=== PATIENT | female | born 1980 | race Caucasian/White ===

== ENCOUNTER 2018-10-17 19:59 | Emergency (ER) | payer MEDICAID, SELFPAY ==
[~2018-10-17 19:59] MED LIST: Sodium Chloride Irrig Solution 250 ML BOT ONE
[2018-10-17] MEDS ORDERED: Bacitracin Zinc 1 Packet ONE (20:47)
[2018-10-17] MEDS ORDERED: HYDROcodone/Acetaminophen 10/325 mg Tablet ONE (20:47)
== END 2018-10-17 21:23 | disposition home or self-care (01) ==
LOC: MADERS 19:59
DX: T20.27XA Burn of second degree of neck, initial encounter (principal); T20.26XA Burn of second degree of forehead and cheek, initial encounter; T21.21XA Burn of second degree of chest wall, initial encounter; T22.20XA Burn of second degree of shoulder and upper limb, except wrist and hand, unspecified site, initial encounter; T31.0 Burns involving less than 10% of body surface; X12.XXXA Contact with other hot fluids, initial encounter
CPT/HCPCS: 16020

== ENCOUNTER 2019-03-01 12:41 | Emergency (ER) | payer SELFPAY | END 2019-03-01 13:20 | disposition home or self-care (01) | LOC: MADERS 12:41 | DX: T63.461A Toxic effect of venom of wasps, accidental (unintentional), initial encounter (principal); F41.9 Anxiety disorder, unspecified; F32.9 Major depressive disorder, single episode, unspecified; F17.210 Nicotine dependence, cigarettes, uncomplicated | CPT/HCPCS: 99282 ==

== ENCOUNTER 2020-11-19 03:26 | Emergency (ER) | payer SELFPAY ==
[2020-11-19 04:04] LABS: #Basophils 0.2 thou/uL (0.0-0.2); #Eosinphils 0.1 thou/uL (0.0-0.7); #Lymphocytes 3.9 thou/uL (1.20-3.40); #Monocytes 0.6 thou/uL (0.11-0.59); #Neutrophils 5.7 thou/uL (1.40-6.50); %Basophils 1.5 % (0.0-1.0); %Eosinophils 1.2 % (0.0-10.0); %Lymphocytes 36.9 % (21.0-51.0); %Monocytes 6.1 % (0.0-10.0); %Neutrophils 54.3 % (42.0-75.0); Mean Corpuscular HGB CONC 33.7 g/dL (32.0-36.0); Mean Corpuscular Hemoglobin 32.6 pg (27.0-31.0); Mean Corpuscular Volume 96.7 fL (78.0-98.0); Mean Platelet Volume 9.5 fL (7.4-10.4); Platelet Count 256 thou/uL (130-400); RBC Distribution Width 13.1 % (11.5-14.5); Red Blood Cell (RBC) Count 4.31 mill/uL (4.20-5.40); White Blood Cell (WBC) Count 10.5 thou/uL (4.8-10.8)
[2020-11-19] MEDS ORDERED: Lorazepam 2 MG/ML VIAL ONE (04:04)
[2020-11-19 04:13] LABS: ALT (SGPT) 20 U/L (8-55); AST (SGOT) 30 U/L (5-34); Acetaminophen Less than 6.0 mcg/mL (10.0-30.0); Albumin 4.6 g/dL (3.5-5.0); Alcohol 300 mg/dL (Less than 10); Alkaline Phosphatase 60 U/L (40-110); Anion Gap 17 mmol/L (10-20); BUN (Urea Nitrogen) 5 mg/dL (7.0-18.7); Bilirubin, Total 0.4 mg/dL (0.2-1.2); Calc. Creatinine Clearance 0 mL/min (70-130); Calcium 8.8 mg/dL (7.8-10.44); Carbon Dioxide 24 mmol/L (22-29); Chloride 102 mmol/L (98-107); Globulin 3.6 g/dL (2.4-3.5); Glucose 93 mg/dL (70-105); Potassium 3.9 mmol/L (3.5-5.1); Protein, Total 8.2 g/dL (6.0-8.3); Salicylate Less than 8.0 mg/dL (15.0-30.0); Sodium 139 mmol/L (136-145)
[2020-11-19 04:34] LABS: Bilirubin Negative (Negative); Blood, Urine Trace (Negative); Clarity Clear (Clear); Glucose, Urine (Dipstick) Negative (Negative); Ketone, Urine Negative (Negative); Leukocyte Negative (Negative); Nitrite Negative (Negative); Protein, Urine (Dipstick) Negative (Neg-Trace); Specific Gravity, Urine Less/Equal 1.005 (1.005-1.030); Urobilinogen 0.2 mg/dL (Less than 2); pH, Urine 6.5 (5.0-9.0)
[2020-11-19 04:35] LABS: Amphetamine Not Detected (NotDetected); Benzodiazepine Screen Not Detected (NotDetected); Cocaine Metabolite Screen Not Detected (NotDetected); Methadone Not Detected (NotDetected); Methamphetamine Not Detected (NotDetected); Opiate Screen Not Detected (NotDetected); Phencyclidine (PCP) Not Detected (NotDetected); RBC/HPF None Seen HPF (0-3); THC/Cannabinoid Screen Detected (NotDetected); Tricyclic Screen Not Detected (NotDetected); WBC/HPF None Seen HPF (0-3); Yeast-Budding 2+ HPF (None Seen); Yeast-Hyphae 2+ HPF (None Seen)
[2020-11-19 04:36] LABS: Barbiturates Screen Not Detected (NotDetected); Medtox Control Line Valid? VALID (VALID); Oxycodone Screen Not Detected (NotDetected)
[2020-11-19 04:37] LABS: Pregnancy Test - Urine (BHCG) Negative (Negative); Pregu Control Background? CLEAR/WHITE (CLR/WHITE); Pregu Control Bar Appear? YES (CONTROL BAR); Specific Gravity Less than 1.005 (1.002-1.036)
[2020-11-19] MEDS ORDERED: Sodium Chloride 0.9% 1,000 ML BAG ONE (07:22)
== END 2020-11-19 18:00 | disposition home or self-care (01) ==
LOC: MADERS 03:26
DX: S00.03XA Contusion of scalp, initial encounter (principal); R45.851 Suicidal ideations; F12.10 Cannabis abuse, uncomplicated; R00.0 Tachycardia, unspecified; F17.210 Nicotine dependence, cigarettes, uncomplicated; X83.8XXA Intentional self-harm by other specified means, initial encounter
CPT/HCPCS: 36415; 70450; 72125; 80053; 80306; 80307; 81003; 81015; 81025; 83605; 84443; 85025; 85379; 96372; J2060; J7050